=== PATIENT | male | born 1980 ===

== ENCOUNTER 2017-03-13 16:02 | Inpatient (IN) | payer OTHER ==
[2017-03-13] MEDS ORDERED: Sodium Chloride 0.9% 1,000 ML IV STA ×3 (16:16→17:10)
--- NOTE | 2017-03-13 16:19 | ED PDOC ---
HPI: Psych/Substance Abuse Time Seen by Provider: 03/13/17 16:15 Chief Complaint (Nursing): Substance Abuse Chief Complaint (Provider): Altered Mental Status ED Caveat: Altered Mental Status History Per: EMS History/Exam Limitations: clinical condition Onset/Duration Of Symptoms: Mins (prior to arrival) Current Symptoms Are (Timing): Still Present Additional Complaint(s): Jonel Jean Baptiste is a 36 year old male who presents to the emergency department via EMS for a psychiatric evaluation after he was found acting erratic and bizarre in public prior to arrival. Patient is unable to provide history at this time due to his altered mental state. On arrival, patient was yelling nonsense in the ED and broke through his restraints then proceeded to flee down the hallways from security. PMD: none provided Past Medical History Reviewed: Unable To Obtain - Family History Family History: States: Unknown Family Hx - Home Medications Home Medications: Ambulatory Orders Medication Instructions Recorded Unobtainable 03/13/17 - Allergies Allergies/Adverse Reactions: Allergies Allergy/AdvReac Type Severity Reaction Status Date / Time Unobtainable Allergy Verified 03/13/17 16:11 Review of Systems Review Of Systems: ROS cannot be obtained secondary to pt's inabilty to answer questions. (altered mental state) Physical Exam - Reviewed Nursing Documentation Reviewed: Yes Vital Signs Reviewed: Yes - Physical Exam Appears: Positive for: Well, Non-toxic Head Exam: Positive for: ATRAUMATIC, NORMAL INSPECTION, NORMOCEPHALIC Skin: Positive for: Normal Color, Warm, Diaphoresis Eye Exam: Positive for: Other (pupils pinpoint). Negative for: Normal appearance, PERRL Cardiovascular/Chest: Positive for: Tachycardia. Negative for: Regular Rate, Rhythm Extremity: Positive for: Normal ROM Neurologic/Psych: Positive for: Alert (and awake), Mood/Affect (agitated) - Laboratory Results Result Diagrams: 03/13/17 16:30 03/13/17 16:30 - Progress Re-evaluation Time: 17:50 Condition: Unchanged - Critical Care Total Time (In Min): 45 Medical Decision Making Medical Decision Making: Initial Impression: Psych evaluation R/O substance injection, heat-related injury Initial Plan: * EKG * Acetaminophen * Alcohol serum * Labs * Creatine Phosphokinase * Drug screen, urine * Salicylate * Urine dipstick * PT/INR * Haldol 5mg * Ativan 2mg IM * NS 1,000ml IV per 100mls/hr * Restraint Scribe Attestation: Documented by Daniela Navarro, acting as a scribe for Jc Haq MD. Provider Scribe Attestation: All medical record entries made by the Scribe were at my direction and personally dictated by me. I have reviewed the chart and agree that the record accurately reflects my personal performance of the history, physical exam, medical decision making, and the department course for this patient. I have also personally directed, reviewed, and agree with the discharge instructions and disposition. Disposition - Clinical Impression Clinical Impression: Severe sepsis, Metabolic acidosis, Heatstroke, Rhabdomyolysis - Patient ED Disposition Is Patient to be Admitted: Yes - Disposition Disposition Time: 17:50 Condition: GUARDED - Pt Status Changed To: Hospital Disposition Of: Inpatient - Admit Certification Admit to Inpatient:: After my assessment, the patient will require hospitalization for at least two midnights. This is because of the severity of symptoms shown, intensity of services needed, and/or the medical risk in this patient being treated as an outpatient. - POA Present On Arrival: None
[2017-03-13 16:39] LABS: BASO # 0.1 K/uL (0.0-0.2); BASO % 0.7 % (0.0-2.0); EOS # 0.1 K/uL (0.0-0.7); EOS % 0.4 % (0.0-4.0); HEMOGLOBIN 16.2 g/dL (12.0-18.0); LYMPH # 3.7 K/uL (1.0-4.3); MEAN CELL VOLUME 97.8 fl (80.0-94.0); MEAN CORPUSCULAR HEMOGLOBIN 30.6 pg (27.0-31.0); MEAN CORPUSCULAR HGB CONC 31.3 g/dL (33.0-37.0); MEAN PLATELET VOLUME 9.2 fl (7.2-11.7); MONO # 1.1 K/uL (0.0-0.8); NEUT # 8.6 K/uL (1.8-7.0); NEUT % 63.9 % (50.0-75.0); NRBC % 0.1 % (0.0-0.0); RBC 5.31 Mil/uL (4.40-5.90); RED CELL DISTRIBUTION WIDTH 14.8 % (11.5-14.5); WHITE BLOOD COUNT 13.5 K/uL (4.8-10.8)
[2017-03-13 16:47] LABS: ALBUMIN 5.5 g/dL (3.5-5.0); ALT/SGPT 68 U/L (21-72); AST/SGOT 116 U/L (17-59); BLOOD UREA NITROGEN 13 mg/dl (9-20); CALCIUM 10.6 mg/dL (8.4-10.2); GFR AFRICAN-AMERICAN 49; GFR NON-AFRICAN AMERICAN 40
[2017-03-13 16:53] LABS: ALB/GLOB RATIO 1.6 (1.0-2.1)
[2017-03-13 17:07] LABS: INR 0.9 (0.9-1.2); PROTHROMBIN TIME 10.6 Seconds (9.8-13.1)
[2017-03-13 17:17] LABS: SALICYLATE < 1.0 mg/dl
[2017-03-13 17:17] LABS: ABG ALLEN TEST YES; ARTERIAL BLOOD GAS HCO3 23.9 mmol/L (21-28); ARTERIAL BLOOD GAS O2 SAT 96.6 % (95-98); ARTERIAL BLOOD GAS PCO2 38 mm/Hg (35-45); ARTERIAL BLOOD GAS PO2 62 mm/Hg (80-100); ARTERIAL BLOOD GAS TCO2 24.7 mmol/L (22-28)
[2017-03-13 17:18] LABS: ACETAMINOPHEN < 10.0 ug/ml (10.0-30.0)
[2017-03-13] MEDS ORDERED: Piperacillin/Tazobact 3.375 GM in Sodium Chloride 0.9% 100 ML IVPB STA (17:29)
--- NOTE | 2017-03-13 17:36 | RAD ---
HISTORY: cough COMPARISON: None available. TECHNIQUE: Chest, one view. FINDINGS: Examination limited by habitus and hypoinflation. LUNGS: No focal consolidation. Please note that chest x-ray has limited sensitivity for the detection of pulmonary masses. PLEURA: Probable pleural thickening, right lateral chest. No significant pleural effusion identified. No definite pneumothorax . CARDIOVASCULAR: Borderline cardiomegaly. OSSEOUS STRUCTURES: No acute osseous abnormality identified. VISUALIZED UPPER ABDOMEN: Unremarkable. OTHER FINDINGS: None. IMPRESSION: Borderline cardiomegaly. Probable pleural thickening, right lateral chest.
[2017-03-13] MEDS ORDERED: Vancomycin 1 g Inj ONE (17:42)
[2017-03-13 18:03] LABS: BARBITURATES, UR NEGATIVE (NEGATIVE); BENZODIAZEPINES, UR NEGATIVE (NEGATIVE); OPIATES, UR NEGATIVE (NEGATIVE); PHENCYCLIDINE, UR POSITIVE (NEGATIVE)
--- NOTE | 2017-03-13 18:06 | CT ---
PROCEDURE: CT HEAD WITHOUT CONTRAST. HISTORY: r/o bleed COMPARISON: None available. TECHNIQUE: Axial computed tomography images were obtained through the head/brain without intravenous contrast. Radiation dose: Total exam DLP = 13 81.50 mGy-cm. This CT exam was performed using one or more of the following dose reduction techniques: Automated exposure control, adjustment of the mA and/or kV according to patient size, and/or use of iterative reconstruction technique. FINDINGS: HEMORRHAGE: No intracranial hemorrhage. BRAIN: No mass effect or edema. No atrophy or chronic microvascular ischemic changes.Please note that MRI with diffusion imaging is more sensitive in the detection of acute ischemic event. VENTRICLES: No hydrocephalus. CALVARIUM: Unremarkable. PARANASAL SINUSES: Mucosal thickening left maxillary sinus. No air-fluid levels identified. MASTOID AIR CELLS: Unremarkable as visualized. No inflammatory changes. OTHER FINDINGS: None. IMPRESSION: No acute intracranial pathology identified. Additional findings as above.
[2017-03-13 18:18] LABS: SQUAMOUS EPITHIAL < 1 /hpf (0-5); URINE BACTERIA RARE (<OCC); URINE BILIRUBIN NEGATIVE (NEGATIVE); URINE BLOOD NEGATIVE (NEGATIVE); URINE CLARITY CLOUDY (Clear); URINE COLOR AMBER (YELLOW); URINE GLUCOSE (UA) NEG (Normal); URINE LEUKOCYTE ESTERASE NEG Leu/uL (Negative); URINE NITRATE NEGATIVE (NEGATIVE); URINE PROTEIN 100 mg/dL (NEGATIVE); URINE UROBILINOGEN 0.2-1.0 mg/dL (0.2-1.0)
--- NOTE | 2017-03-13 18:21 | CP.CCUPN ---
CCU Subjective - Physician Review Subjective (Free Text): Consultation for ICU Admission: 36M with no known / unknown PMH brought into ER for confusion and agitation, became more agitated and combative, broke through restraints and running thru ER hallways, finally restrained at 4 points and sedated with Ativan and Haldol. Initial eval noted T= 101.8 (prior to Haldol admin), BP 167/115, HR 175, RR 22, and 95% on RA. Presently sedated with restraints in place, no further information obtainable and primary information obtained from review of all available chart notes and discussion with ER physician and Nurses. Urine tox obtained and + Phencyclidine and cannabinoids+ noted. Code Sepsis was called for Lactate elevation and tachycardia. ROS: as above, other symptoms unobtainable due to sedation. Other PMFSH: Unobtainable, All other Nursing and Physician documentation reviewed and no new pertinent information relevant to current problems. CXR: (my interp)- poor inspiratory film, essentially clear lung perry. CT Brain negative for acute disease. EKG: pending MAJOR IMPRESSIONS / PLAN: 1. Heat Stroke versus Multiple Substance Abuse Intoxication/ OD ( PCP, ROSE) a. Unclear if any other possible offending drugs or meds involved including neuroleptics or other anticholinergics. b. Aggressive IVF hydration with saline or Ringers c. Serial CK and lactate till normalized. See no obvious evidence of infection , but empiric abx coverage started in ER with Vanco / Zosyn. d. Passive cooling for now, on cooling blanket on, core Mccabe temp monitoring. e. Hold Tylenol use for now. f. Watch for DTs since unknown ETOH uses/abuse. g. Check TSH, serum osmolarity. h. Get any old medical records for more database info. CCU Objective - Vital Signs / Intake & Output Vital Signs (Last 4 hours): Vital Signs Temp Pulse Resp BP Pulse Ox 03/13/17 18:18 97.0 F L 114 H 16 143/99 H 99 03/13/17 17:30 116 H 16 120/74 100 Intake and Output (Last 8hrs): Intake & Output 03/13/17 03/13/17 03/13/17 06:59 14:59 22:59 Weight 170 lb - Physical Exam Physical Exam Limitations: Positive for: Altered Mental Status, Intoxication, Uncooperative Head: Positive for: Atraumatic, Normocephalic Pupils: Positive for: Pinpoint Extroacular Muscles: Positive for: EOMI. Negative for: Gaze Palsy Conjunctiva: Positive for: Injected. Negative for: Icteric Ears: Positive for: Normal Mouth: Positive for: Moist Mucous Membranes, Normal Tounge. Negative for: Drooling Pharnyx: Negative for: ERYTHEMA, EXUDATE Neck: Negative for: Normal Range of Motion, Meningeal Signs, JVD, Lymphadenopathy Respiratory/Chest: Positive for: Clear to Auscultation. Negative for: Accessory Muscle Use, Wheezes Cardiovascular: Positive for: Regular Rate and Rhythm, Tachycardic. Negative for: Murmurs, Rub Abdomen: Negative for: Tenderness, Distention, Normal Bowel Sounds, Peritoneal Signs Lower Extremity: Positive for: NORMAL PULSES. Negative for: Edema, CALF TENDERNESS, Cyanosis Neurological: Positive for: Motor Func Grossly Intact. Negative for: Speech Normal Skin: Positive for: Diaphoretic. Negative for: Rashes Psychiatric: Positive for: Agitated, Intoxicated - Medications Active Medications: Active Medications Generic Name Dose Route Start Last Admin Trade Name Freq PRN Reason Stop Dose Admin Sodium Chloride 1,000 mls @ 100 mls/hr 03/13/17 16:16 03/13/17 16:20 Sodium Chloride 0.9% IV 03/14/17 02:15 100 mls/hr .Q10H STA Administration Sodium Chloride 1,000 mls @ 250 mls/hr 03/13/17 17:04 Sodium Chloride 0.9% IV 03/13/17 21:03 .Q4H STA Vancomycin HCl 1 gm/ Sodium 250 mls @ 166.667 mls/hr 03/13/17 17:29 Chloride IVPB 03/13/17 18:58 STAT STA Piperacillin Sod/Tazobactam 100 mls @ 100 mls/hr 03/13/17 17:29 Sod 3.375 gm/ Sodium Chloride IVPB 03/13/17 18:28 STAT STA - Patient Studies Lab Studies: Lab Studies 03/13/17 Range/Units 17:35 Urine Opiates Screen Negative (NEGATIVE) Urine Methadone Screen Negative (NEGATIVE) Ur Barbiturates Screen Negative (NEGATIVE) Ur Phencyclidine Scrn Positive H (NEGATIVE) Ur Amphetamines Screen Negative (NEGATIVE) U Benzodiazepines Scrn Negative (NEGATIVE) U Oth Cocaine Metabols Negative (NEGATIVE) U Cannabinoids Screen Positive H (NEGATIVE) Laboratory Results - last 24 hr 03/13/17 17:35 Urine Opiates Screen Negative Urine Methadone Screen Negative Ur Barbiturates Screen Negative Ur Phencyclidine Scrn Positive H Ur Amphetamines Screen Negative U Benzodiazepines Scrn Negative U Oth Cocaine Metabols Negative U Cannabinoids Screen Positive H Review of Systems - Review of Systems Systems not reviewed;Unavailable: Intoxicated Critical Care Progress Note - Extremities/Vascular Does the Patient have a Central Venous Catheter?: No Does the Patient need a Central Venous Catheter?: No Does the Patient have a Mccabe Catheter?: Yes Does the Patient need a Mccabe Catheter?: Yes Catheter Insertion Criteria: Need for accurate measurement of output in critically ill patient - Restraints Justification for Restraints: High risk for harming self - Prophylaxis GI Prophylaxis GI: PPI - Prophylaxis DVT Prophylaxis DVT: SCDs
[2017-03-13 18:51] LABS: VENOUS BLOOD GAS BASE EXCESS -2.2 mmol/L (0.0-2.0); VENOUS BLOOD GAS PCO2 44 mmHg (40-60); VENOUS BLOOD GAS PO2 52 mm/Hg (30-55); VENOUS BLOOD PH 7.34 (7.32-7.43)
[2017-03-13] MEDS ORDERED: Piperacillin/Tazobact 3.375 gm Inj IVPB ONE (20:06)
[2017-03-13] MEDS: DEXTROSE 5% IV SCH (20:16)
[2017-03-13] MEDS: SODIUM BICARBONATE IV SCH (20:16)
[2017-03-13] MEDS: WATER IV SCH (20:16)
[2017-03-13 20:48] LABS: VENOUS BLOOD GAS BASE EXCESS -3.7 mmol/L (0.0-2.0); VENOUS BLOOD GAS PCO2 42 mmHg (40-60); VENOUS BLOOD GAS PO2 74 mm/Hg (30-55); VENOUS BLOOD PH 7.33 (7.32-7.43)
[2017-03-14] MEDS: SODIUM BICARBONATE IV SCH ×2 (02:15→12:19)
[2017-03-14] MEDS: WATER IV SCH ×2 (02:15→12:19)
[2017-03-14] MEDS: DEXTROSE 5% IV SCH ×2 (02:15→12:19)
[2017-03-14 05:35] LABS: HEMOGLOBIN 13.6 g/dL (12.0-18.0); MEAN CELL VOLUME 93.5 fl (80.0-94.0); MEAN CORPUSCULAR HEMOGLOBIN 31.2 pg (27.0-31.0); MEAN CORPUSCULAR HGB CONC 33.4 g/dL (33.0-37.0); RBC 4.35 Mil/uL (4.40-5.90); RED CELL DISTRIBUTION WIDTH 14.3 % (11.5-14.5); WHITE BLOOD COUNT 9.8 K/uL (4.8-10.8)
[2017-03-14 05:43] LABS: ALB/GLOB RATIO 1.3 (1.0-2.1); ALBUMIN 3.4 g/dL (3.5-5.0); ALT/SGPT 57 U/L (21-72); AST/SGOT 70 U/L (17-59); BLOOD UREA NITROGEN 8 mg/dl (9-20); CALCIUM 7.9 mg/dL (8.4-10.2); GFR AFRICAN-AMERICAN > 60; GFR NON-AFRICAN AMERICAN > 60
[2017-03-14] MEDS ORDERED: Potassium Chloride 20 mEq ER Tab PO ONE ×2 (10:26→15:24)
--- NOTE | 2017-03-14 15:08 | CP.PCM.HP ---
History of Present Illness - History of Present Illness History of Present Illness: CC: Substance Abuse. 36 y/o M brought by EMS to ER [facility], [place] after be found lying in the street on DOA associated to AMS. Worsening symptoms: Agitation, confusion, TMAx 102.7 HR: 175 BP: 167/115 Aggravated factor: Toxicology analysis with high level of Phencyclidine, Cannabinoids. Pt was brought to hospital by EMS and upon arrival suddenly he became very combative jumping from the stretcher and running to the hospital hallways, there after he was placed on restraint but after he breakthrough the restraints and start running through the ER hallways, eventually he was taken by the security and escorted to the ER and placed 4 points restraints. Pt is now Calm, family at bedside, tolerate lunch well, answering questions. Pt denied: Abdominal pain, n/v/d, CP, SOB, numbness, weakness, sick contact, recent travel. PMHx: Asthma. EKG: Sinus Tachycardia, anterior infarct, age undetermined. CT Head: No intracranial pathology. CXR: No focal consolidation. Present on Admission - Present on Admission Any Indicators Present on Admission: No Review of Systems - Constitutional Constitutional: Fever - EENT Eyes: Other (negative) Ears: Other (negative) Nose/Mouth/Throat: Other (negative) - Cardiovascular Cardiovascular: Rapid Heart Rate, Other - Respiratory Respiratory: Other (negative) - Gastrointestinal Gastrointestinal: Other (negative) - Genitourinary Genitourinary: Other (negative) - Musculoskeletal Musculoskeletal: Other (negative) - Integumentary Integumentary: Other (negative) - Neurological Neurological: Behavioral Changes, Confusion - Psychiatric Psychiatric: Confusion, Other (agitated) - Endocrine Endocrine: Other (negative) - Hematologic/Lymphatic Hematologic: Other (negative) Past Patient History - Past Medical History & Family History Past Medical History?: Yes Pertinent Family History: Unknown - Past Social History Smoking Status: Former Smoker Drugs: Cannabis, Other (Phencyclidine) Home Situation {Lives}: With Family - CARDIAC Hx Cardiac Disorders: No - PULMONARY Hx Respiratory Disorders: Yes Hx Asthma: Yes - NEUROLOGICAL Hx Neurological Disorder: No - HEENT Hx HEENT Problems: No - RENAL Hx Chronic Kidney Disease: No - ENDOCRINE/METABOLIC Hx Endocrine Disorders: No - HEMATOLOGICAL/ONCOLOGICAL Hx Blood Disorders: No - INTEGUMENTARY Hx Dermatological Problems: No - MUSCULOSKELETAL/RHEUMATOLOGICAL Hx Musculoskeletal Disorders: No - GASTROINTESTINAL Hx Gastrointestinal Disorders: No - GENITOURINARY/GYNECOLOGICAL Hx Genitourinary Disorders: No - PSYCHIATRIC Hx Psychophysiologic Disorder: Yes Hx Substance Use: Yes - SURGICAL HISTORY Hx Surgeries: (unknown) Meds Allergies/Adverse Reactions: Allergies Allergy/AdvReac Type Severity Reaction Status Date / Time Unobtainable Allergy Verified 03/13/17 16:11 Physical Exam - Constitutional Appears: No Acute Distress - Head Exam Head Exam: NORMAL INSPECTION - Eye Exam Eye Exam: PERRL - ENT Exam ENT Exam: Normal Oropharynx - Neck Exam Neck exam: Positive for: Normal Inspection - Respiratory Exam Respiratory Exam: NORMAL BREATHING PATTERN - Cardiovascular Exam Cardiovascular Exam: REGULAR RHYTHM - GI/Abdominal Exam GI & Abdominal Exam: Normal Bowel Sounds, Soft - Extremities Exam Extremities exam: Positive for: normal inspection - Back Exam Back exam: NORMAL INSPECTION - Neurological Exam Neurological exam: Alert, Oriented x3 Additional comments: Response to verbal questions, follows commands. - Psychiatric Exam Additional comments: Calm. - Skin Skin Exam: Warm Results - Vital Signs Recent Vital Signs: Last Vital Signs Temp 98.2 F 03/14/17 12:00 Pulse 80 03/14/17 14:00 Resp 15 03/14/17 14:00 BP 143/75 03/14/17 14:00 Pulse Ox 97 03/14/17 12:00 reviewed Niko - Labs Result Diagrams: 03/14/17 04:35 03/14/17 04:30 Labs: Laboratory Results - last 24 hr 03/13/17 03/13/17 03/13/17 17:35 17:35 18:45 WBC RBC Hgb Hct MCV MCH MCHC RDW Plt Count pO2 52 VBG pH 7.34 VBG pCO2 44 VBG HCO3 22.8 VBG Total CO2 25.1 VBG O2 Sat (Calc) 91.7 H VBG Base Excess -2.2 L VBG Potassium 4.1 Sodium 143.0 Chloride 111.0 H Glucose 122 H Lactate 1.4 FiO2 28.0 Blood Gas Comments Crit Value Called To Crit Value Called By Crit Value Read Back Blood Gas Notified Time Potassium Carbon Dioxide Anion Gap BUN Creatinine Est GFR ( Amer) Est GFR (Non-Af Amer) Random Glucose Serum Osmolality Lactic Acid Calcium Total Bilirubin AST ALT Alkaline Phosphatase Total Creatine Kinase Total Protein Albumin Globulin Albumin/Globulin Ratio Venous Blood Potassium 4.1 Urine Color Bijal Urine Clarity Cloudy Urine pH 5.0 Ur Specific Lang[place] 1.029 Urine Protein 100 Urine Glucose (UA) Neg Urine Ketones Trace Urine Blood Negative Urine Nitrate Negative Urine Bilirubin Negative Urine Urobilinogen 0.2-1.0 Ur Leukocyte Esterase Neg Urine RBC (Auto) 4 H Urine Microscopic WBC 8 H Ur Squamous Epith Cells < 1 Urine Bacteria Rare Hyaline Casts 6-10 H Urine Yeast (Budding) Occ H Urine Opiates Screen Negative Urine Methadone Screen Negative Ur Barbiturates Screen Negative Ur Phencyclidine Scrn Positive H Ur Amphetamines Screen Negative U Benzodiazepines Scrn Negative U Oth Cocaine Metabols Negative U Cannabinoids Screen Positive H 03/13/17 03/14/17 03/14/17 20:40 04:30 04:30 WBC RBC Hgb Hct MCV MCH MCHC RDW Plt Count pO2 74 H VBG pH 7.33 VBG pCO2 42 VBG HCO3 21.9 VBG Total CO2 23.4 VBG O2 Sat (Calc) 98.7 H VBG Base Excess -3.7 L VBG Potassium 3.9 Sodium 140.0 144 Chloride 110.0 H 109 H Glucose 133 H Lactate 2.9 H FiO2 21.0 Blood Gas Comments Lactate 2.9 Crit Value Called To jamel Delacruz Crit Value Called By 203 Crit Value Read Back Y Blood Gas Notified Time 2046 Potassium 3.3 L Carbon Dioxide 27 Anion Gap 11 BUN 8 L Creatinine 0.9 Est GFR ( Amer) > 60 Est GFR (Non-Af Amer) > 60 Random Glucose 95 Serum Osmolality 292 Lactic Acid Calcium 7.9 L Total Bilirubin 0.5 AST 70 H D ALT 57 Alkaline Phosphatase 86 Total Creatine Kinase 2514 H Total Protein 6.0 L Albumin 3.4 L D Globulin 2.6 Albumin/Globulin Ratio 1.3 Venous Blood Potassium 3.9 Urine Color Urine Clarity Urine pH Ur Specific Lang[place] Urine Protein Urine Glucose (UA) Urine Ketones Urine Blood Urine Nitrate Urine Bilirubin Urine Urobilinogen Ur Leukocyte Esterase Urine RBC (Auto) Urine Microscopic WBC Ur Squamous Epith Cells Urine Bacteria Hyaline Casts Urine Yeast (Budding) Urine Opiates Screen Urine Methadone Screen Ur Barbiturates Screen Ur Phencyclidine Scrn Ur Amphetamines Screen U Benzodiazepines Scrn U Oth Cocaine Metabols U Cannabinoids Screen 03/14/17 03/14/17 04:35 04:35 WBC 9.8 RBC 4.35 L Hgb 13.6 D Hct 40.6 MCV 93.5 D MCH 31.2 H MCHC 33.4 RDW 14.3 Plt Count 266 pO2 VBG pH VBG pCO2 VBG HCO3 VBG Total CO2 VBG O2 Sat (Calc) VBG Base Excess VBG Potassium Sodium Chloride Glucose Lactate FiO2 Blood Gas Comments Crit Value Called To Crit Value Called By Crit Value Read Back Blood Gas Notified Time Potassium Carbon Dioxide Anion Gap BUN Creatinine Est GFR ( Amer) Est GFR (Non-Af Amer) Random Glucose Serum Osmolality Lactic Acid 1.1 Calcium Total Bilirubin AST ALT Alkaline Phosphatase Total Creatine Kinase Total Protein Albumin Globulin Albumin/Globulin Ratio Venous Blood Potassium Urine Color Urine Clarity Urine pH Ur Specific [place] Urine Protein Urine Glucose (UA) Urine Ketones Urine Blood Urine Nitrate Urine Bilirubin Urine Urobilinogen Ur Leukocyte Esterase Urine RBC (Auto) Urine Microscopic WBC Ur Squamous Epith Cells Urine Bacteria Hyaline Casts Urine Yeast (Budding) Urine Opiates Screen Urine Methadone Screen Ur Barbiturates Screen Ur Phencyclidine Scrn Ur Amphetamines Screen U Benzodiazepines Scrn U Oth Cocaine Metabols U Cannabinoids Screen reviewed J.P. - EKG Data EKG comments: reviewed J.P. - Imaging and Cardiology Chest x-ray Status: Report reviewed by me (Niko) CT scan - head Status: Report reviewed by me (Niko) Assessment & Plan (1) Polysubstance abuse Status: Acute Priority: High (2) Heatstroke Status: Acute Priority: High (3) Rhabdomyolysis Status: Acute Priority: High (4) Metabolic acidosis Status: Acute Priority: High - Assessment and Plan (Free Text) Plan: F/U Blood C-S, MRSA Screening, 1:1 observation, continue Haldol, Ativan and rest of Tx. ICU Time 60 minutes. - Date & Time Date: 03/14/17
--- NOTE | 2017-03-14 15:16 | CP.CCUPN ---
CCU Subjective - Physician Review Subjective (Free Text): Noncombative, at the bedside, he wanted to leave AMA earlier, has persuaded him to stay in the hospital. No overall distress, no other signs or symptoms of withdrawal. ROS: as above, no other pertinent negs or positives on 10+ system review. Other PMFSH: Unobtainable, All other Nursing and Physician documentation reviewed and no new pertinent information relevant to current problems. MAJOR IMPRESSIONS / PLAN: 1. Substance Abuse Intoxication / OD ( PCP, ROSE) 2. Mild Rhabdomyolysis without MONIQUE PLAN: 1. Stable for trf to regular med surg bed. 2. Continue IVF hydration, SERIAL CK LEVELS TILL NORMALIZED. 3. Lactates have normalized. 4. See no overall infection or Severe Sepsis CCU Objective - Vital Signs / Intake & Output Vital Signs (Last 4 hours): Vital Signs Temp Pulse Resp BP Pulse Ox 03/14/17 14:00 80 15 143/75 03/14/17 12:00 98.2 F 76 19 128/76 97 Intake and Output (Last 8hrs): Intake & Output 03/14/17 03/14/17 03/14/17 06:59 14:59 22:59 Intake Total 4000 Output Total 4200 1600 Balance -200 -1600 Intake: IV 3400 Oral 600 Output: Urine 4200 1600 Urine, Voided 4200 1600 - Physical Exam Head: Positive for: Atraumatic, Normocephalic Pupils: Positive for: PERRL. Negative for: Pinpoint Extroacular Muscles: Positive for: EOMI. Negative for: Gaze Palsy Conjunctiva: Positive for: Normal. Negative for: Injected, Icteric Ears: Positive for: Normal Mouth: Positive for: Moist Mucous Membranes, Normal Tounge. Negative for: Drooling Pharnyx: Negative for: ERYTHEMA, EXUDATE Neck: Negative for: Normal Range of Motion, Meningeal Signs, JVD, Lymphadenopathy Respiratory/Chest: Positive for: Clear to Auscultation. Negative for: Accessory Muscle Use, Wheezes Cardiovascular: Positive for: Regular Rate and Rhythm, Tachycardic. Negative for: Murmurs, Rub Abdomen: Negative for: Tenderness, Distention, Normal Bowel Sounds, Peritoneal Signs Lower Extremity: Positive for: NORMAL PULSES. Negative for: Edema, CALF TENDERNESS, Cyanosis Neurological: Positive for: GCS=15, Speech Normal, Motor Func Grossly Intact Skin: Positive for: Diaphoretic. Negative for: Rashes Psychiatric: Positive for: Agitated, Intoxicated - Medications Active Medications: Active Medications Generic Name Dose Route Start Last Admin Trade Name Freq PRN Reason Stop Dose Admin Piperacillin Sod/Tazobactam 100 mls @ 100 mls/hr 03/14/17 01:00 03/14/17 08: 39 Sod 2.25 gm/ Sodium Chloride IVPB 100 mls/hr Q8 RUSSELL Administration Vancomycin HCl 1 gm/ Sodium 250 mls @ 166.667 mls/hr 03/14/17 09:00 03/14/17 10:35 Chloride IVPB 166.667 mls/hr DAILY RUSSELL Administration Lorazepam 1 mg 03/13/17 18:34 03/14/17 06:06 Ativan IVP 1 mg Q4H PRN Administration Agitation Pantoprazole Sodium 40 mg 03/13/17 18:25 03/14/17 08:35 Protonix Inj IVP 40 mg DAILY RUSSELL Administration - Patient Studies Lab Studies: Lab Studies 03/14/17 03/14/17 03/14/17 Range/Units 04:35 04:35 04:30 WBC 9.8 (4.8-10.8) K/uL RBC 4.35 L (4.40-5.90) Mil/uL Hgb 13.6 D (12.0-18.0) g/dL Hct 40.6 (35.0-51.0) % MCV 93.5 D (80.0-94.0) fl MCH 31.2 H (27.0-31.0) pg MCHC 33.4 (33.0-37.0) g/dL RDW 14.3 (11.5-14.5) % Plt Count 266 (130-400) K/uL pO2 (30-55) mm/Hg VBG pH (7.32-7.43) VBG pCO2 (40-60) mmHg VBG HCO3 mmol/L VBG Total CO2 (22-28) mmol/L VBG O2 Sat (Calc) (40-65) % VBG Base Excess (0.0-2.0) mmol/L VBG Potassium (3.6-5.2) mmol/L Sodium (132-148) mmol/L Chloride (98-107) mmol/L Glucose (75-110) mg/dL Lactate (0.7-2.1) mmol/L FiO2 % Blood Gas Comments Crit Value Called To Crit Value Called By Crit Value Read Back Blood Gas Notified Time Potassium (3.6-5.0) MMOL/L Carbon Dioxide (22-30) mmol/L Anion Gap (10-20) BUN (9-20) mg/dl Creatinine (0.8-1.5) mg/dL Est GFR ( Amer) Est GFR (Non-Af Amer) Random Glucose (75-110) mg/dL Serum Osmolality 292 (272-300) mosm/kg Lactic Acid 1.1 (0.7-2.1) MMOL/L Calcium (8.4-10.2) mg/dL Total Bilirubin (0.2-1.3) mg/dl AST (17-59) U/L ALT (21-72) U/L Alkaline Phosphatase (38-126) U/L Total Creatine Kinase (55-170) U/L Total Protein (6.3-8.2) G/DL Albumin (3.5-5.0) g/dL Globulin (2.2-3.9) gm/dL Albumin/Globulin Ratio (1.0-2.1) Venous Blood Potassium (3.6-5.2) mmol/L Urine Color (YELLOW) Urine Clarity (Clear) Urine pH (5.0-8.0) Ur Specific [place] (1.003-1.030) Urine Protein (NEGATIVE) mg/dL Urine Glucose (UA) (Normal) mg/dL Urine Ketones (NEGATIVE) mg/dL Urine Blood (NEGATIVE) Urine Nitrate (NEGATIVE) Urine Bilirubin (NEGATIVE) Urine Urobilinogen (0.2-1.0) mg/dL Ur Leukocyte Esterase (Negative) Santos/uL Urine RBC (Auto) (0-3) /hpf Urine Microscopic WBC (0-5) /hpf Ur Squamous Epith Cells (0-5) /hpf Urine Bacteria (<OCC) Hyaline Casts (0-2) /hpf Urine Yeast (Budding) (NEGATIVE) /hpf Urine Opiates Screen (NEGATIVE) Urine Methadone Screen (NEGATIVE) Ur Barbiturates Screen (NEGATIVE) Ur Phencyclidine Scrn (NEGATIVE) Ur Amphetamines Screen (NEGATIVE) U Benzodiazepines Scrn (NEGATIVE) U Oth Cocaine Metabols (NEGATIVE) U Cannabinoids Screen (NEGATIVE) 03/14/17 03/13/17 03/13/17 Range/Units 04:30 20:40 18:45 WBC (4.8-10.8) K/uL RBC (4.40-5.90) Mil/uL Hgb (12.0-18.0) g/dL Hct (35.0-51.0) % MCV (80.0-94.0) fl MCH (27.0-31.0) pg MCHC (33.0-37.0) g/dL RDW (11.5-14.5) % Plt Count (130-400) K/uL pO2 74 H 52 (30-55) mm/Hg VBG pH 7.33 7.34 (7.32-7.43) VBG pCO2 42 44 (40-60) mmHg VBG HCO3 21.9 22.8 mmol/L VBG Total CO2 23.4 25.1 (22-28) mmol/L VBG O2 Sat (Calc) 98.7 H 91.7 H (40-65) % VBG Base Excess -3.7 L -2.2 L (0.0-2.0) mmol/L VBG Potassium 3.9 4.1 (3.6-5.2) mmol/L Sodium 144 140.0 143.0 (132-148) mmol/L Chloride 109 H 110.0 H 111.0 H (98-107) mmol/L Glucose 133 H 122 H (75-110) mg/dL Lactate 2.9 H 1.4 (0.7-2.1) mmol/L FiO2 21.0 28.0 % Blood Gas Comments Lactate 2.9 Crit Value Called To jamel Delacruz Crit Value Called By 203 Crit Value Read Back Y Blood Gas Notified Time 2046 Potassium 3.3 L (3.6-5.0) MMOL/L Carbon Dioxide 27 (22-30) mmol/L Anion Gap 11 (10-20) BUN 8 L (9-20) mg/dl Creatinine 0.9 (0.8-1.5) mg/dL Est GFR ( Amer) > 60 Est GFR (Non-Af Amer) > 60 Random Glucose 95 (75-110) mg/dL Serum Osmolality (272-300) mosm/kg Lactic Acid (0.7-2.1) MMOL/L Calcium 7.9 L (8.4-10.2) mg/dL Total Bilirubin 0.5 (0.2-1.3) mg/dl AST 70 H D (17-59) U/L ALT 57 (21-72) U/L Alkaline Phosphatase 86 (38-126) U/L Total Creatine Kinase 2514 H (55-170) U/L Total Protein 6.0 L (6.3-8.2) G/DL Albumin 3.4 L D (3.5-5.0) g/dL Globulin 2.6 (2.2-3.9) gm/dL Albumin/Globulin Ratio 1.3 (1.0-2.1) Venous Blood Potassium 3.9 4.1 (3.6-5.2) mmol/L Urine Color (YELLOW) Urine Clarity (Clear) Urine pH (5.0-8.0) Ur Specific [place] (1.003-1.030) Urine Protein (NEGATIVE) mg/dL Urine Glucose (UA) (Normal) mg/dL Urine Ketones (NEGATIVE) mg/dL Urine Blood (NEGATIVE) Urine Nitrate (NEGATIVE) Urine Bilirubin (NEGATIVE) Urine Urobilinogen (0.2-1.0) mg/dL Ur Leukocyte Esterase (Negative) Santos/uL Urine RBC (Auto) (0-3) /hpf Urine Microscopic WBC (0-5) /hpf Ur Squamous Epith Cells (0-5) /hpf Urine Bacteria (<OCC) Hyaline Casts (0-2) /hpf Urine Yeast (Budding) (NEGATIVE) /hpf Urine Opiates Screen (NEGATIVE) Urine Methadone Screen (NEGATIVE) Ur Barbiturates Screen (NEGATIVE) Ur Phencyclidine Scrn (NEGATIVE) Ur Amphetamines Screen (NEGATIVE) U Benzodiazepines Scrn (NEGATIVE) U Oth Cocaine Metabols (NEGATIVE) U Cannabinoids Screen (NEGATIVE) 03/13/17 03/13/17 Range/Units 17:35 17:35 WBC (4.8-10.8) K/uL RBC (4.40-5.90) Mil/uL Hgb (12.0-18.0) g/dL Hct (35.0-51.0) % MCV (80.0-94.0) fl MCH (27.0-31.0) pg MCHC (33.0-37.0) g/dL RDW (11.5-14.5) % Plt Count (130-400) K/uL pO2 (30-55) mm/Hg VBG pH (7.32-7.43) VBG pCO2 (40-60) mmHg VBG HCO3 mmol/L VBG Total CO2 (22-28) mmol/L VBG O2 Sat (Calc) (40-65) % VBG Base Excess (0.0-2.0) mmol/L VBG Potassium (3.6-5.2) mmol/L Sodium (132-148) mmol/L Chloride (98-107) mmol/L Glucose (75-110) mg/dL Lactate (0.7-2.1) mmol/L FiO2 % Blood Gas Comments Crit Value Called To Crit Value Called By Crit Value Read Back Blood Gas Notified Time Potassium (3.6-5.0) MMOL/L Carbon Dioxide (22-30) mmol/L Anion Gap (10-20) BUN (9-20) mg/dl Creatinine (0.8-1.5) mg/dL Est GFR ( Amer) Est GFR (Non-Af Amer) Random Glucose (75-110) mg/dL Serum Osmolality (272-300) mosm/kg Lactic Acid (0.7-2.1) MMOL/L Calcium (8.4-10.2) mg/dL Total Bilirubin (0.2-1.3) mg/dl AST (17-59) U/L ALT (21-72) U/L Alkaline Phosphatase (38-126) U/L Total Creatine Kinase (55-170) U/L Total Protein (6.3-8.2) G/DL Albumin (3.5-5.0) g/dL Globulin (2.2-3.9) gm/dL Albumin/Globulin Ratio (1.0-2.1) Venous Blood Potassium (3.6-5.2) mmol/L Urine Color [place] (YELLOW) Urine Clarity Cloudy (Clear) Urine pH 5.0 (5.0-8.0) Ur Specific [place] 1.029 (1.003-1.030) Urine Protein 100 (NEGATIVE) mg/dL Urine Glucose (UA) Neg (Normal) mg/dL Urine Ketones Trace (NEGATIVE) mg/dL Urine Blood Negative (NEGATIVE) Urine Nitrate Negative (NEGATIVE) Urine Bilirubin Negative (NEGATIVE) Urine Urobilinogen 0.2-1.0 (0.2-1.0) mg/dL Ur Leukocyte Esterase Neg (Negative) Santos/uL Urine RBC (Auto) 4 H (0-3) /hpf Urine Microscopic WBC 8 H (0-5) /hpf Ur Squamous Epith Cells < 1 (0-5) /hpf Urine Bacteria Rare (<OCC) Hyaline Casts 6-10 H (0-2) /hpf Urine Yeast (Budding) Occ H (NEGATIVE) /hpf Urine Opiates Screen Negative (NEGATIVE) Urine Methadone Screen Negative (NEGATIVE) Ur Barbiturates Screen Negative (NEGATIVE) Ur Phencyclidine Scrn Positive H (NEGATIVE) Ur Amphetamines Screen Negative (NEGATIVE) U Benzodiazepines Scrn Negative (NEGATIVE) U Oth Cocaine Metabols Negative (NEGATIVE) U Cannabinoids Screen Positive H (NEGATIVE) Laboratory Results - last 24 hr 03/13/17 03/13/17 03/13/17 17:35 17:35 18:45 WBC RBC Hgb Hct MCV MCH MCHC RDW Plt Count pO2 52 VBG pH 7.34 VBG pCO2 44 VBG HCO3 22.8 VBG Total CO2 25.1 VBG O2 Sat (Calc) 91.7 H VBG Base Excess -2.2 L VBG Potassium 4.1 Sodium 143.0 Chloride 111.0 H Glucose 122 H Lactate 1.4 FiO2 28.0 Blood Gas Comments Crit Value Called To Crit Value Called By Crit Value Read Back Blood Gas Notified Time Potassium Carbon Dioxide Anion Gap BUN Creatinine Est GFR ( Amer) Est GFR (Non-Af Amer) Random Glucose Serum Osmolality Lactic Acid Calcium Total Bilirubin AST ALT Alkaline Phosphatase Total Creatine Kinase Total Protein Albumin Globulin Albumin/Globulin Ratio Venous Blood Potassium 4.1 Urine Color Bijal Urine Clarity Cloudy Urine pH 5.0 Ur Specific [place] 1.029 Urine Protein 100 Urine Glucose (UA) Neg Urine Ketones Trace Urine Blood Negative Urine Nitrate Negative Urine Bilirubin Negative Urine Urobilinogen 0.2-1.0 Ur Leukocyte Esterase Neg Urine RBC (Auto) 4 H Urine Microscopic WBC 8 H Ur Squamous Epith Cells < 1 Urine Bacteria Rare Hyaline Casts 6-10 H Urine Yeast (Budding) Occ H Urine Opiates Screen Negative Urine Methadone Screen Negative Ur Barbiturates Screen Negative Ur Phencyclidine Scrn Positive H Ur Amphetamines Screen Negative U Benzodiazepines Scrn Negative U Oth Cocaine Metabols Negative U Cannabinoids Screen Positive H 03/13/17 03/14/17 03/14/17 20:40 04:30 04:30 WBC RBC Hgb Hct MCV MCH MCHC RDW Plt Count pO2 74 H VBG pH 7.33 VBG pCO2 42 VBG HCO3 21.9 VBG Total CO2 23.4 VBG O2 Sat (Calc) 98.7 H VBG Base Excess -3.7 L VBG Potassium 3.9 Sodium 140.0 144 Chloride 110.0 H 109 H Glucose 133 H Lactate 2.9 H FiO2 21.0 Blood Gas Comments Lactate 2.9 Crit Value Called To jamel Delacruz Crit Value Called By 203 Crit Value Read Back Y Blood Gas Notified Time 2046 Potassium 3.3 L Carbon Dioxide 27 Anion Gap 11 BUN 8 L Creatinine 0.9 Est GFR ( Amer) > 60 Est GFR (Non-Af Amer) > 60 Random Glucose 95 Serum Osmolality 292 Lactic Acid Calcium 7.9 L Total Bilirubin 0.5 AST 70 H D ALT 57 Alkaline Phosphatase 86 Total Creatine Kinase 2514 H Total Protein 6.0 L Albumin 3.4 L D Globulin 2.6 Albumin/Globulin Ratio 1.3 Venous Blood Potassium 3.9 Urine Color Urine Clarity Urine pH Ur Specific [place] Urine Protein Urine Glucose (UA) Urine Ketones Urine Blood Urine Nitrate Urine Bilirubin Urine Urobilinogen Ur Leukocyte Esterase Urine RBC (Auto) Urine Microscopic WBC Ur Squamous Epith Cells Urine Bacteria Hyaline Casts Urine Yeast (Budding) Urine Opiates Screen Urine Methadone Screen Ur Barbiturates Screen Ur Phencyclidine Scrn Ur Amphetamines Screen U Benzodiazepines Scrn U Oth Cocaine Metabols U Cannabinoids Screen 03/14/17 03/14/17 04:35 04:35 WBC 9.8 RBC 4.35 L Hgb 13.6 D Hct 40.6 MCV 93.5 D MCH 31.2 H MCHC 33.4 RDW 14.3 Plt Count 266 pO2 VBG pH VBG pCO2 VBG HCO3 VBG Total CO2 VBG O2 Sat (Calc) VBG Base Excess VBG Potassium Sodium Chloride Glucose Lactate FiO2 Blood Gas Comments Crit Value Called To Crit Value Called By Crit Value Read Back Blood Gas Notified Time Potassium Carbon Dioxide Anion Gap BUN Creatinine Est GFR ( Amer) Est GFR (Non-Af Amer) Random Glucose Serum Osmolality Lactic Acid 1.1 Calcium Total Bilirubin AST ALT Alkaline Phosphatase Total Creatine Kinase Total Protein Albumin Globulin Albumin/Globulin Ratio Venous Blood Potassium Urine Color Urine Clarity Urine pH Ur Specific [place] Urine Protein Urine Glucose (UA) Urine Ketones Urine Blood Urine Nitrate Urine Bilirubin Urine Urobilinogen Ur Leukocyte Esterase Urine RBC (Auto) Urine Microscopic WBC Ur Squamous Epith Cells Urine Bacteria Hyaline Casts Urine Yeast (Budding) Urine Opiates Screen Urine Methadone Screen Ur Barbiturates Screen Ur Phencyclidine Scrn Ur Amphetamines Screen U Benzodiazepines Scrn U Oth Cocaine Metabols U Cannabinoids Screen Fingerstick Blood Sugar Results: 134 Critical Care Progress Note - Nutrition Nutrition: Nutrition Category Date Time Status Regular Diet [DIET] Diets 03/14/17 Breakfast Active
--- NOTE | 2017-03-14 15:33 | CARD ---
APPROVED REPORT EKG Measurement Heart [id number] <Conclusion> Normal sinus rhythm Normal ECG
--- NOTE | 2017-03-14 16:31 | CARD ---
APPROVED REPORT EKG Measurement Heart [id number] <Conclusion> Sinus tachycardia Left axis deviation Anterior infarct, age undetermined Abnormal ECG
[2017-03-14] MEDS: Lactated Ringer's 1,000 ML IV SCH ×2 (17:50→22:05)
[2017-03-15 01:05] VITALS: RESP 18
[2017-03-15] MEDS ORDERED: DiphenhydrAMINE 50 mg/ml Inj IVP STA (01:05)
[2017-03-15] MEDS: Lactated Ringer's 1,000 ML IV SCH ×3 (02:30→08:56)
[2017-03-15 08:49] VITALS: BP 148/95; PULSE 76; TEMP 98.3; O2SAT 95
== END 2017-03-15 14:13 | disposition left against medical advice (07) | DRG 584 ==
LOC: H.ER 16:02 → H.ERHOLD 17:27 → H.ICU/CCU 21:45 → H.MEDSURG1 03-14 16:55
PROVIDERS: ADMIT Internal Medicine Pulmonary Disease; ATTEND Internal Medicine Pulmonary Disease
DX: A41.9 Sepsis, unspecified organism (principal); M62.82 Rhabdomyolysis; E87.2 Acidosis; J45.909 Unspecified asthma, uncomplicated; Z78.1 Physical restraint status; Z87.891 Personal history of nicotine dependence; F45.9 Somatoform disorder, unspecified; R00.0 Tachycardia, unspecified